=== PATIENT | male | born 1950 | race Caucasian/White ===

== ENCOUNTER 2018-06-05 13:27 | Emergency (ER) | payer SELFPAY ==
[2018-06-05 13:40] VITALS: BMI 21.7
[2018-06-05] MEDS ORDERED: SODIUM CHLORIDE 1,000 ML IV STA (14:13)
[2018-06-05] MEDS ORDERED: MAG HYDROX/AL HYDROX/SIMETH 30 ML UNIT-DOSE CUP PO ONE (14:13)
[2018-06-05] MEDS ORDERED: FAMOTIDINE 20 MG/50 ML IVPB 20 MG/50 ML MG IVPB ONE ×2 (14:13→14:30)
--- NOTE | 2018-06-05 14:13 | PDOC ---
History of Present Illness - General History Source: Patient - History of Present Illness Timing/Duration: reports: intermittent Pain Radiation: reports: LUQ, LLQ, epigastric <Joni Gordon - Last Filed: 06/05/18 18:18> <[email or web address] - Last Filed: 06/08/18 01:07> - General Chief Complaint: Pain, Acute Stated Complaint: SIDE PAIN Time Seen by Provider: 06/05/18 13:53 Past History - Past Medical History COPD: No - Suicide/Smoking/Psychosocial Hx Smoking History: Former smoker Have you smoked in the past 12 months: No Information on smoking cessation initiated: No <Joni Gordon - Last Filed: 06/05/18 18:18> <Ezekiel Smith - Last Filed: 06/08/18 01:07> - Past Medical History Allergies/Adverse Reactions: Allergies Allergy/AdvReac Type Severity Reaction Status Date / Time No Known Allergies Allergy Verified 06/05/18 13:40 Home Medications: Ambulatory Orders Unobtainable 06/05/18 Review of Systems - Review of Systems Constitutional: No: Chills, Fever, Unexplained wgt Loss Cardiac (ROS): No: Lightheadedness, Palpitations, Syncope ABD/GI: Yes: Nausea, Vomiting. No: Diarrhea, Abdominal cramping : No: Dysuria, Flank Pain, Hematuria Musculoskeletal: No: Back Pain <Joni Gordon Last Filed: 06/05/18 18:18> *Physical Exam - Vital Signs Last Vital Signs Temp Pulse Resp BP Pulse Ox 98.1 F 74 18 151/81 99 06/05/18 13:38 06/05/18 13:38 06/05/18 13:38 06/05/18 13:38 06/05/18 13:38 - Physical Exam General Appearance: Yes: Appropriately Dressed. No: Apparent Distress HEENT: positive: Normal Voice Neck: positive: Supple Respiratory/Chest: positive: Lungs Clear, Normal Breath Sounds. negative: Respiratory Distress Cardiovascular: positive: Regular Rate, S1, S2 Gastrointestinal/Abdominal: positive: Tender (minimal ttp to LUQ/LLQ and epigastrium, no ttp over mcburneys), Soft Musculoskeletal: negative: CVA Tenderness Integumentary: positive: Dry, Warm Neurologic: positive: Fully Oriented, Alert, Normal Mood/Affect <Joni Gordon - Last Filed: 06/05/18 18:18> - Vital Signs Last Vital Signs Temp Pulse Resp BP Pulse Ox 97.8 F 71 14 162/88 100 06/05/18 18:30 06/05/18 18:30 06/05/18 18:30 06/05/18 18:30 06/05/18 18:30 <Ezekiel Smith - Last Filed: 06/08/18 01:07> Moderate Sedation - Procedure Monitoring Vital Signs: Procedure Monitoring Vital Signs Temperature 98.1 F 06/05/18 13:38 Pulse Rate 74 06/05/18 13:38 Respiratory Rate 18 06/05/18 13:38 Blood Pressure 151/81 06/05/18 13:38 O2 Sat by Pulse Oximetry (%) 99 06/05/18 13:38 <Joni Gordon - Last Filed: 06/05/18 18:18> - Procedure Monitoring Vital Signs: Procedure Monitoring Vital Signs Temperature 97.8 F 06/05/18 18:30 Pulse Rate 71 06/05/18 18:30 Respiratory Rate 14 06/05/18 18:30 Blood Pressure 162/88 06/05/18 18:30 O2 Sat by Pulse Oximetry (%) 100 06/05/18 18:30 <Ezekiel Smith - Last Filed: 06/08/18 01:07> ED Treatment Course - LABORATORY CBC & Chemistry Diagram: 06/05/18 14:20 06/05/18 15:36 <Joni Gordon - Last Filed: 06/05/18 18:18> - LABORATORY CBC & Chemistry Diagram: 06/05/18 14:20 06/05/18 15:36 - ADDITIONAL ORDERS Additional order review: 06/05/18 14:20 RBC 4.36 MCV 101.9 H MCHC 33.9 RDW 13.4 MPV 10.3 Neutrophils % 65.9 Lymphocytes % 26.9 Monocytes % 5.9 Eosinophils % 0.8 Basophils % 0.5 - Medications Given in the ED: ED Medications Discontinued Medications Generic Name Dose Route Start Last Admin Trade Name Freq PRN Reason Stop Dose Admin Al Hydroxide/Mg Hydroxide 30 ml 06/05/18 14:13 06/05/18 14:57 Mylanta Oral Suspension - PO 06/05/18 14:14 30 ml ONCE ONE Administration Famotidine/Sodium Chloride 20 mg in 50 mls @ 100 mls/hr 06/05/18 14:13 14:57 Pepcid 20 Mg Premixed Ivpb - IVPB 06/05/18 14:42 100 mls/hr ONCE ONE Administration Sodium Chloride 1,000 mls @ 1,000 mls/hr 06/05/18 14:13 06/05/18 14:57 Normal Saline - IV 06/05/18 15:12 1,000 mls/hr ASDIR STA Administration <Ezekiel Smith - Last Filed: 06/08/18 01:07> Medical Decision Making - Medical Decision Making 06/05/18 14:20 68 yo M, h/o former smoker (30 ppd, quit 2 months ago), HTN, s/p surgery for lower abd trauma 2 years ago, here w/ abd pain. Pt started having LLQ 2 weeks ago intermittently that radiates to LUQ and to chest. No a/w food or excessive belching. Had 1 e/o nausea, vomiting, 2 days ago that has since resolved. Also reports no appetite. Denies sob, diaphoresis, change in bowel movements, melena , bright blood per rectum, fever or chills. No unexplained weight loss. States he had similar pain 3 years ago while in the [place] with no clear diagnosis. States symptoms resolved then See exam R/o diverticulitis, possible gastritis/GERD, unlikely SBO -trial of GI cocktail -labs -possible CT 06/05/18 18:[address] unremarkable. Pt reports significant improvement with Pepcid. Told to purchase meds OTC as patient currently waiting for his Medicaid to be activated. States he will follow-up with his PMD been <Joni Gordon - Last Filed: 06/05/18 18:18> - Medical Decision Making The patient was seen and evaluated in conjunction with CELESTE Gordon under my direct supervision, ancillary studies were reviewed. I agree with the plan as outlined by CELESTE Gordon . <Ezekiel Smith - Last Filed: 06/08/18 01:07> *DC/Admit/Observation/Transfer <Joni Gordon - Last Filed: 06/05/18 18:18> <Ezekiel Smith - Last Filed: 06/08/18 01:07> Diagnosis at time of Disposition: Abdominal pain Qualifiers: Abdominal location: unspecified location Qualified Code(s): R10.9 - Unspecified abdominal pain - Discharge Dispostion Disposition: HOME Condition at time of disposition: Improved - Patient Instructions Printed Discharge Instructions: Gastritis Additional Instructions: La causa de jerome dolor abdominal podra deberse a gastritis. Puede comprar Pepcid en cualquier farmacia y michel segn lo indicado. Adems, evite los alimentos picantes y la cafena, ya que pueden empeorar los sntomas. Jenna anlisis de laboratorio y CAT fueron normales aqu. Por favor, pau un seguimiento con jerome mdico de atencin primaria rome vez que jerome seguro est activo. Print Language: URDU
[2018-06-05] MEDS ORDERED: MAG HYDROX/AL HYDROX/SIMETH 30 ML UNIT-DOSE CUP ONE (14:30)
[2018-06-05 15:13] LABS: BASO % 0.5 % (0-2.0); EOS % 0.8 % (0-4.5); HEMATOCRIT 44.4 % (35.4-49); HEMOGLOBIN 15.1 GM/dL (11.7-16.9); LYMPH % 26.9 % (8-40); MCH 34.5 pg (25.7-33.7); MCHC 33.9 g/dl (32.0-35.9); MEAN CELL VOLUME 101.9 fl (80-96); MEAN PLT VOLUME 10.3 fl (7.5-11.1); MONO % 5.9 % (3.8-10.2); NEUT % 65.9 % (42.8-82.8); PLATELET COUNT 274 K/MM3 (134-434); RBC 4.36 M/mm3 (4.00-5.60); RDW 13.4 % (11.9-15.9); WHITE BLOOD COUNT 10.7 K/mm3 (4.0-10.0)
[2018-06-05 15:37] LABS: URINE APPEARANCE CLEAR; URINE BILIRUBIN NEGATIVE (<2.0 mg/dL); URINE COLOR STRAW; URINE GLUCOSE (UA) NEGATIVE (NEGATIVE); URINE KETONE NEGATIVE (NEGATIVE); URINE LEUK ESTERASE NEGATIVE (NEGATIVE); URINE NITRITE NEGATIVE (NEGATIVE); URINE PROTEIN NEGATIVE (NEGATIVE); URINE UROBILINOGEN NEGATIVE mg/dL (0.2-1.0)
[2018-06-05 16:13] LABS: ALBUMIN 3.5 g/dl (3.4-5.0); ALK PHOS 100 U/L (45-117); ANION GAP 3 MMOL/L (8-16); BILIRUBIN,TOTAL 0.2 mg/dL (0.2-1); BLOOD UREA NITROGEN 12 mg/dL (7-18); CALCIUM 8.4 mg/dL (8.5-10.1); CHLORIDE 107 mmol/L (98-107); CO2 30 mmol/L (21-32); CREATININE 0.8 mg/dL (0.55-1.3); GLUCOSE,RANDOM 107 mg/dL (74-106); POTASSIUM 4.8 mmol/L (3.5-5.1); SGOT/AST 15 U/L (15-37); SGPT/ALT 27 U/L (13-61); SODIUM 140 mmol/L (136-145); TOT PROT 7.3 g/dl (6.4-8.2)
[2018-06-05 18:31] VITALS: BP 162/88; PULSE 71; TEMP 97.8
== END 2018-06-05 18:30 | disposition home or self-care (01) ==
LOC: JER 13:27
PROC: 3E033GC Introduction of Other Therapeutic Substance into Peripheral Vein, Percutaneous Approach (ICD-10-PCS; principal; 2018-06-05)
DX: K29.70 Gastritis, unspecified, without bleeding (principal); I10 Essential (primary) hypertension; Z87.891 Personal history of nicotine dependence
CPT/HCPCS: 36415; 74177-TC; 80053; 81003; 82550; 83690; 84484; 85025; 99282-25; J7030

== ENCOUNTER 2022-03-09 14:36 | Observation (INO) | payer MEDICARE, OTHER ==
[2022-03-09 15:10] VITALS: BMI 25.1
[2022-03-09 15:45] LABS: BASO % 0.3 % (0-2.0); EOS % 0.8 % (0-4.5); HEMATOCRIT 38.9 % (35.4-49); HEMOGLOBIN 13.2 GM/dL (11.7-16.9); LYMPH % 11.7 % (8-40); MEAN CELL VOLUME 102.9 fl (80-96); MONO % 3.6 % (3.8-10.2); NEUT % 83.6 % (42.8-82.8); PLATELET COUNT 249 10^3/uL (134-434); RBC 3.78 M/mm3 (4.00-5.60); RDW 13.3 % (11.9-15.9); WHITE BLOOD COUNT 10.7 K/mm3 (4.0-10.0)
[2022-03-09 15:56] LABS: INR 1.05 (0.83-1.09); PROTHROMBIN TIME (PATIENT) 12.1 SEC (9.7-13.0)
[2022-03-09 15:57] LABS: ALBUMIN 3.8 g/dl (3.4-5.0); BLOOD UREA NITROGEN 17.9 mg/dL (7-18); CALCIUM 9.3 mg/dL (8.5-10.1)
[2022-03-09 15:59] LABS: ACTIVATED PTT 29.2 SECONDS (25.2-36.5)
[2022-03-09 16:02] LABS: BILIRUBIN,TOTAL 0.2 mg/dL (0.2-1); TOT PROT 7.7 g/dl (6.4-8.2)
[2022-03-09 16:05] LABS: N-TERMINAL BNP 73.1 pg/ml (5-125)
[2022-03-09] MEDS ORDERED: ASPIRIN 325 MG ENTERIC COATED TABLET (FP) PO ONE (19:53)
[2022-03-09] MEDS ORDERED: SODIUM CHLORIDE 500 ML IV STA (22:06)
[2022-03-09] MEDS ORDERED: ASPIRIN 325 MG ENTERIC COATED TABLET (FP) ONE (22:37)
[2022-03-10] MEDS ORDERED: predniSONE 10 MG TABLET (UD) PO ONE (01:22)
[2022-03-10] MEDS ORDERED: INSULIN SLIDING SCALE (NOVOLOG) 1 VIAL SQ SCH (07:00)
[2022-03-10 08:20] LABS: BASO % 0.5 % (0-2.0); EOS % 1.9 % (0-4.5); HEMATOCRIT 37.4 % (35.4-49); HEMOGLOBIN 12.5 GM/dL (11.7-16.9); LYMPH % 29.8 % (8-40); MCH 34.4 pg (25.7-33.7); MCHC 33.4 g/dl (32.0-35.9); MONO % 7.4 % (3.8-10.2); NEUT % 60.4 % (42.8-82.8); PLATELET COUNT 229 10^3/uL (134-434); RBC 3.63 M/mm3 (4.00-5.60); RDW 13.3 % (11.9-15.9)
[2022-03-10 08:28] LABS: ALBUMIN 3.4 g/dl (3.4-5.0); BLOOD UREA NITROGEN 16.9 mg/dL (7-18); MAGNESIUM 2.1 mg/dL (1.8-2.4)
[2022-03-10] MEDS: INSULIN SLIDING SCALE (NOVOLOG) 1 VIAL SQ SCH ×3 (08:30→16:54)
[2022-03-10 08:31] LABS: CREATININE 0.8 mg/dL (0.55-1.3); PHOSPHOROUS 3.5 mg/dL (2.5-4.9)
[2022-03-10 08:33] LABS: BILIRUBIN,TOTAL 0.4 mg/dL (0.2-1); CHOLESTEROL 174 mg/dL (50-200); TOT PROT 6.9 g/dl (6.4-8.2); TRIGLYCERIDES 60 mg/dL (0-150)
[2022-03-10 08:34] LABS: LDL CHOLESTEROL (ONLY SJRH) 117 mg/dL (5-100)
[2022-03-10 08:36] LABS: HDL CHOLESTEROL 50 mg/dL (40-60)
[2022-03-10 16:16] VITALS: RESP 18
[2022-03-10] MEDS ORDERED: ENOXAPARIN NA (PORCINE) 40 MG/0.4 ML DISP.SYRIN SQ ONE (16:31)
[2022-03-10] MEDS: SODIUM CHLORIDE 1,000 ML IV SCH (16:53)
[2022-03-10] MEDS: ENOXAPARIN NA (PORCINE) 40 MG/0.4 ML DISP.SYRIN SQ SCH (16:54)
[2022-03-10 17:19] LABS: PH,URINE 6.5 (5.0-8.0); URINE APPEARANCE CLEAR; URINE BILIRUBIN NEGATIVE (NEGATIVE); URINE COLOR YELLOW; URINE GLUCOSE (UA) NEGATIVE (NEGATIVE); URINE KETONE NEGATIVE (NEGATIVE); URINE LEUK ESTERASE NEGATIVE (NEGATIVE); URINE NITRITE NEGATIVE (NEGATIVE); URINE PROTEIN NEGATIVE (NEGATIVE)
[2022-03-10 17:37] LABS: OPIATES, URI NEGATIVE (NEGATIVE); URINE BARBITURATES NEGATIVE (NEGATIVE); URINE BENZODIAZEPINES NEGATIVE (NEGATIVE)
[2022-03-10 17:38] LABS: PHENCYCLIDINE,URINE NEGATIVE (NEGATIVE)
[2022-03-10 17:39] LABS: URINE AMPHETAMINES NEGATIVE (NEGATIVE)
[2022-03-10 17:46] LABS: COCAINE, UR NEGATIVE (NEGATIVE); METHADONE, UR NEGATIVE (NEGATIVE)
[2022-03-10] MEDS: NICOTINE 7 MG/24 HOURS TOPICAL PATCH TD SCH (23:08)
[2022-03-11] MEDS ORDERED: predniSONE 20 MG TABLET (UD) PO ONE ×2 (01:23→08:00)
[2022-03-11] MEDS: ENOXAPARIN NA (PORCINE) 40 MG/0.4 ML DISP.SYRIN SQ SCH (09:25)
[2022-03-11] MEDS: NICOTINE 7 MG/24 HOURS TOPICAL PATCH TD SCH (09:31)
[2022-03-11] MEDS: SODIUM CHLORIDE 1,000 ML IV SCH (09:36)
[2022-03-11] MEDS ORDERED: PNEUMOC 20-VAL CONJ-DIP CRM/PF 0.5 ML SYRINGE IM ONE (10:00)
[2022-03-11] MEDS ORDERED: FLU VACC QS2022-23(6MOS UP)/PF 60 MCG/0.5 ML SYRINGE IM ONE (10:00)
[2022-03-11 15:51] VITALS: BP 120/65; PULSE 72; TEMP 98.6
[2022-03-12] MEDS ORDERED: predniSONE 10 MG TABLET (UD) PO ONE ×2 (01:23→08:00)
[2022-03-13] MEDS ORDERED: predniSONE 5 MG TABLET (UD) PO ONE ×2 (01:23→08:00)
== END 2022-03-11 18:48 | disposition home or self-care (01) ==
LOC: JER 14:36 → SUATTDRO 14:36 → JERBED 15:54 → J4W 03-11 00:16
PROVIDERS: ADMIT Internal Medicine; ATTEND Internal Medicine
PROC: 3E02340 Introduction of Influenza Vaccine into Muscle, Percutaneous Approach (ICD-10-PCS; principal; 2022-03-09)
PROC: 3E0234Z Introduction of Serum, Toxoid and Vaccine into Muscle, Percutaneous Approach (ICD-10-PCS; 2022-03-09)
PROC: 3E0337Z Introduction of Electrolytic and Water Balance Substance into Peripheral Vein, Percutaneous Approach (ICD-10-PCS; 2022-03-09)
PROC: 3E013GC Introduction of Other Therapeutic Substance into Subcutaneous Tissue, Percutaneous Approach (ICD-10-PCS; 2022-03-09)
DX: R55 Syncope and collapse (principal); R07.89 Other chest pain; I10 Essential (primary) hypertension; F17.210 Nicotine dependence, cigarettes, uncomplicated; R73.9 Hyperglycemia, unspecified; I95.89 Other hypotension
CPT/HCPCS: 90471; 90653; 96372; G0009; 0241U-QW; 36415; 70450-TC; 71045-TC-FY; 80053; 80061; 80307; 81003; 82962; 83690; 83735; 83880; 84100; 84443; 84484; 85025; 85610; 85730; 90677; 93005; 93010; 93306-TC; 93880-TC; 99285-25; G0378; Q2036